=== PATIENT | female | born 1950 | race Caucasian/White ===

== ENCOUNTER → 2016-11-06 | Outpatient (CLI) | payer OTHER, MEDICARE | LOC: BRMIMAGING 10:06 | PROVIDERS: ATTEND Family Medicine | DX: R07.9 Chest pain, unspecified (principal); R06.02 Shortness of breath | CPT/HCPCS: 71020-PO ==

== ENCOUNTER → 2017-04-16 | Outpatient (CLI) | payer OTHER, MEDICARE | LOC: BRMIMAGING 12:58 | PROVIDERS: ATTEND Family Medicine | DX: R06.02 Shortness of breath (principal); R05 Cough | CPT/HCPCS: 71020-PO ==

== ENCOUNTER → 2017-08-06 | Outpatient (CLI) | payer OTHER, MEDICARE | LOC: SBRMNEURO 21:00 | PROVIDERS: ATTEND Internal Medicine Pulmonary Disease | DX: G47.33 Obstructive sleep apnea (adult) (pediatric) (principal) ==